=== PATIENT | male | born 1960 | race Caucasian/White ===

== ENCOUNTER 2025-05-09 08:40 | Outpatient (AMB) | payer MEDICARE, SELFPAY ==
--- NOTE | 2025-05-09 08:42 | A.OFFPC_ITS ---
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 Establish care Intake Note: patient here for new patient visit Gym Supervisor Required: No Allergies No Known Allergies Allergy (Verified 05/09/25 08:58) Medication List - Last Reconciled 05/09/25 by Jamar Albarran CNP levothyroxine 125 mcg PO DAILY lovastatin 40 mg PO QPM Tobacco use date assessed: 05/09/25 Fall risk assessment: No Falls in past year Last assessed Fall Risk: 05/09/25 Dental Screening Dental Screen Date: 05/09/25 Did you have a dental visit in the last 12 months?: Yes Did you have a dental problem in the last 6 months where you did not have access to dental care?: No Was dental information given to patient?: Patient has dentist HPI HPI Comments History of Present Illness Details 64-year-old male presents to establish c are. He admits to taking Levothyroxine 125mcg daily and Lovastatin 40mg daily without adverse reactions. Prior PCP? - [facility] Last office Visit - 05/2024 Last CPE/labs -03/2024 Acute issue(s) - None Past Medical History - Hyperlipidemia, hypothyroidism, myopia (wears glasses), bilateral hearing impairment(wears hearing aids) Surgical History - Umbilical hernia repair Family History - Dad: Alcohol abuse - Mom: Breast cancer Social History - Nonsmoker. Does not vape. Drinks 1 bee r once weekly. Denies recreational drug use - Has been making healthy dietary choice s. Exercises routinely. Generally sleep well Health maintenance - Last eye exam was a year ago with Dylan Piper in [facility]. Referred to Ophthalmology for routine eye exam - Last dental visit was in 01/2025 - Last tetanus vaccine was in 2022. - Has not been vaccinated for the flu ; received vaccination today - He has never had a colonoscopy or [place] guard test; declines both testing despite instructions and encouragement for screening Specialists - None [facility] Medical History (Updated 05/09/25 @ 09:19 by Jamar Albarran CNP) H/O thyroid disease High cholesterol Surgical History (Updated 05/09/25 @ 08:56 by DASIA Miller) History of umbilical hernia repair Family History (Updated 05/09/25 @ 08:50 by DASIA Miller) Father Alcohol abuse Social History (Updated 05/09/25 @ 08:50 by DASIA Miller) Housing: House Patient Tobacco Use Status: Never used Tobacco e-Cigarette/Vaping Use: Never Used Second Hand Smoke Exposure: No service: No Current occupational status: retired Current occupational exposures/hazards: No Cognitive needs: No Hearing needs: No Vision needs: Yes Questionnaire PHQ-9 Over the last 2 weeks, how often have you been bothered by any of the following problems? 1. Little interest or pleasure in doing things: not at all 2. Feeling down, depressed, or hopeless: not at all 3. Trouble falling or staying asleep, or sleeping too much: not at all 4. Feeling tired or having little energy: not at all 5. Poor appetite or overeating: not at all 6. Feeling bad about yourself - or that you are a failure or have let yourself or your family down: not at all 7. Trouble concentrating on things, such as reading the newspaper or watching television: not at all 8. Moving or speaking so slowly that other people could have noticed. Or the opposite - being so fidgety or restless that you have been moving around a lot more than usual: not at all 9. Thoughts that you would be better off or of hurting yourself in some way: not at all Total score: 0 Depression Screening Interpretation: Negative Depression Screening Done: Yes 38329 - PHQ-9 Billing: Yes Source: Developed by Drs. Leoncio Shelby, Leeann Sloan, Angel Lai and colleagues, with an educational luis from [employer]. Thrive Questionnaire Date Thrive assessed: 05/09/25 I am a: Patient What is your living situation today?: I have a steady place to live Within the past 12 months, did the food you bought not last and you didn't have the money to get more?: Never true Within the past 12 months, did you worry whether your food would run out before you got money to buy more?: Never true Do you have trouble paying for medicines?: No Do you have trouble getting transportation to medical appointments?: No Do you have trouble paying your heating and electricity bill?: No Do you have trouble taking care of your child, family member or friend?: No Do you have trouble with day-to-day activities such as bathing, preparing meals, shopping, managing finances, etc.?: No Are you currently unemployed and looking for a job?: No Are you interested in more education?: No Please select the resources that you would like help with: None Currently or been in a relationship where the following occur: No concerns reported THRIVE Score: 0 AUDIT C Alcohol Use Questionnaire (AUDIT-C) 1. How often do you have a drink containing alcohol?: 2-4 times a month 2. How many drinks containing alcohol do you have on a typical day when you are drinking?: 1 or 2 3. How often do you have six or more drinks on one occasion?: Never Total Score: 2 Score Reviewed/Action Taken: Yes BATSHEVA-7 AMB Questionnaire BATSHEVA-7 Date BATSHEVA - 7 assessed: 05/09/25 Feeling nervous, anxious, or on edge: 0 = Not at all Not being able to stop or control worryin = Not at all Worrying too much about different things: 0 = Not at all Trouble relaxin = Not at all Being so restless that it is hard to sit still: 0 = Not at all Becoming easily annoyed or irritable: 0 = Not at all Feeling afraid as if something awful might happen: 0 = Not at all Total BATSHEVA-7 score (0-4 normal; 5-9 mild; 10-14 moderate; 15-21 severe): 0 Source: Developed by Drs. Leoncio Shelby, Leeann Sloan, Angel Lai and colleagues, with an educational luis from [employer]. BATSHEVA-7 Assessment Billing BATSHEVA-7 Assessment Tool: BATSHEVA-7 Assessment 67710 Review of Systems Const Details: Denies chills, Denies fatigue, Denies fever(s), Denies headache(s) and Denies weakness HEENT Denies change in vision, Denies dizziness, Denies headache(s), Denies hearing loss, Denies nasal congestion, Denies sinus pain, Denies sinus pressure and Denies sore throat Card Denies chest pain, Denies lightheadedness, Denies dyspnea and Denies other (palpitations) Resp Denies cough, Denies dyspnea and Denies wheezing GI Denies abdominal pain, Denies melena, Denies hematochezia, Denies change in bowel habits, Denies dyspepsia and Denies nausea Denies hematuria and Denies dysuria Musc Denies abnormal gait, Denies myalgias, Denies arthralgias, Denies numbness and Denies tingling Skin/Breast Denies rash, Denies unusual bruising and Denies wounds Neuro Denies abnormal gait, Denies dizziness, Denies headache(s), Denies memory loss, Denies numbness, Denies Sensory deficit (Neuro), Denies tingling and Denies weakness Psych Denies anxiety, Denies depression and Denies memory loss Endo Denies cold intolerance, Denies fatigue, Denies heat intolerance, Denies polydipsia and Denies polyuria Reji/Lymph Denies easy bleeding and Denies easy bruising Aller/Immun Denies wheezing Physical exam (Primary Care) Vital Signs: Last Vital Signs Temp 98.0 F 05/09/25 08:51 Pulse 65 05/09/25 08:51 Resp 16 05/09/25 08:51 BP 130/86 05/09/25 09:21 Pulse Ox 96 05/09/25 08:51 Oxygen Delivery Method Room Air 05/09/25 08:51 BMI result Body Mass Index 35.8 Tobacco/Smoking Status: Tobacco use Status Tobacco use date assessed 05/09/25 05/09/25 08:50 Patient Tobacco Use Status Never used Tobacco 05/09/25 08:50 e-Cigarette/Vaping Use Never Used 05/09/25 08:50 PHQ-9: PHQ-9 Score PHQ-9: Total score 0 05/09/25 10:00 Depression Screening Interpretation: Negative Thrive Assessment: Date of Thrive Assessment Date Thrive assessed 05/09/25 05/09/25 08:46 Currently or been in a relationship where the following occur: No concerns reported Const Other: General: no acute distress, well developed, alert and awake Nutritional Appearance: well nourished Orientation/consciousness: patient oriented x3 HENMT Head: Yes normocephalic and Yes atraumatic Ears: hearing grossly normal bilaterally and TM's normal bilaterally General nose exam: Normal external nose present and Normal nares present Mouth: Normal oral and palatal mucosa present and moist mucous membranes Teeth and gingiva: dentition normal Throat: Yes oropharynx normal Eyes Pupils: Equal, round and reactive pupils present and Pupil accommodation reflex normal EOM: EOMs intact bilaterally Neck Neck: Yes normal visual inspection, Yes no lymphadenopathy and Yes trachea midline Thyroid: Thyroid normal Carotids: no bruits Lymphatic: no lymphadenopathy noted Chest Chest palpation & inspection: normal inspection of the chest Resp Effort & Inspection: normal respiratory effort Auscultation: clear to auscultation bilaterally Cardio Rate: regular rate Rhythm: regular rhythm Heart sounds: S1 normal heart sound present, S2 normal heart sound present, no gallops, no murmurs and no rubs Bruits: no abdominal aortic bruits and no carotid bruits GI Palpation (GI): No Abdominal aortic bruit present, Soft to palpation, nontender, No hepatosplenomegaly present and No Rebound tenderness present Auscultation: normal bowel sounds General: Yes no CVA tenderness Back/Spine/Pelvis Back: no CVA tenderness Cervical Spine: cervical ROM normal and No Cervical spine tenderness Thoracic/Lumbar Spine: thoraco-lumbar ROM normal, No pain with thoraco-lumbar ROM, No thoracic spinal tenderness and No lumbar spinal tenderness Skin General: warm and dry. Normal skin color. Normal skin turgor Lesions: no lesions Rashes: no rashes Trauma: no lacerations or abrasions Wounds: no wounds Nails: normal Neuro General: patient oriented x3, gait normal and CN's II-XI intact bilaterally Cranial nerves: Yes Equal, round and reactive pupils present Cognition (Neuro): normal cognition Gait exam (Neuro): Normal gait present Motor exam (neuro): 5/5 motor strength present throughout Sensory Exam: No Sensory deficit (Neuro) Deep tendon reflexes (DTR's): Right patellar reflex intensity grade: 2+ and Left patellar reflex intensity grade: 2+ Extrem General: Yes normal to inspection, No edema and No calf tenderness Psych Appearance: grossly normal Affect: normal affect Attitude: cooperative Thought process: Normal thought process present Office Procedures Flu Questionnaire Does the patient have a severe egg allergy?: No Does the patient have severe life threatening allergies?: No Does the patient have a fever or illness today?: No Has the patient ever had Guillain-[place] Syndrome?: No Has the patient ever had any past reaction to a flu shot?: No Immunizations Fluarix [id number] (PF) 45 mcg (15 mcg x 3)/0.5 mL IM syringe Performing Provider: Jamar Albarran CNP Performing Location: [facility] Administered by: Bandar Urrutia RN on 05/09/25 09:57 Dose Route Admin Location Dispensed Lot Number Expiration Date 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 [employer] Production 0.5 mL IM Left Deltoid 0.5 mL [id number] 01/09/26 [id number] [employer] VIS Given Date VIS Provided VIS Publication Date 05/09/25 Single Vaccine 24 Eligibility Eligibility Date Funding Source Not [facility] Eligible 05/09/25 Private Coding Level of Care Code New Pt Prev Care >65yr (56625) Diagnoses Normal physical examination, routine Z00.00 Eye exam, routine Z01.00 Laboratory tests ordered as part of a complete physical exam (CPE) Z00.00 Additional Codes BATSHEVA-7 Assessment Billing - BATSHEVA-7 Assessment Tool: BATSHEVA-7 Assessment 86353 ([id number]) PHQ-9 - 96497 - PHQ-9 Billing: Yes ([id number]) Assessment & Plan Assessment & Plan (1) Normal physical examination, routine: Code(s): Z00.00 - Encounter for general adult medical examination without abnormal findings Category: Medical Plan: No significant functional limitation noted. Continue current treatment regimen. Healthy diet and routine exercise encouraged. Perform lab work and follow-up in 2 weeks for labs review. Return sooner with symptoms or concerns. Verbalized understanding and agreed with the plan. (2) Eye exam, routine: Code(s): Z01.00 - Encounter for examination of eyes and vision without abnormal findings Category: Medical Plan: Last eye exam was a year ago with Steve in [facility]. Referred to Ophthalmology for routine eye exam. (3) Laboratory tests ordered as part of a complete physical exam (CPE): Code(s): Z00.00 - Encounter for general adult medical examination without abnormal findings Category: Medical Plan: Fasting labs ordered as part of a complete physical exam. Advised to fast for at least 10 hours before getting labs drawn. May drink water Verbalized understanding and agreed with treatment plan. Orders: Orders Comprehensive [place]. Panel Fast Today Z00.00 - Encounter for general adult medical examination without abnormal findings Lipid Panel Today Z00.00 - Encounter for general adult medical examination without abnormal findings Microalbumin, Random (w Creat) Today Z00.00 - Encounter for general adult medical examination without abnormal findings TSH reflex Free T4 Today Z00.00 - Encounter for general adult medical examination without abnormal findings Complete Blood Count Auto Diff Today Z00.00 - Encounter for general adult medical examination without abnormal findings PSA, Ultra Sensitive Today Z00.00 - Encounter for general adult medical examination without abnormal findings UA CC w/rflx Micro + Cult Today Z00.00 - Encounter for general adult medical examination without abnormal findings Vitamin D 25-OH Total Today Z00.00 - Encounter for general adult medical examination without abnormal findings Influenza [id number] Immunization Today Z23 - Encounter for immunization Referrals Ophthalmology Referral Z01.00 - Encounter for examination of eyes and vision without abnormal findings Medications: New levothyroxine 125 mcg PO DAILY 90 caps 1RF 90 days lovastatin 40 mg PO QPM 90 tabs 1RF 90 days
[2025-05-09 08:51] VITALS: BP 157/77; PULSE 65; RESP 16; TEMP 36.7; O2SAT 96; BMI 35.8
[2025-05-09 09:21] VITALS: BP 130/86
--- OUTSIDE RECORDS SUMMARY | 2025-05-09 09:24 | XMS_ITS | Clinical Summary ---
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 0 10/23/2009 Active Active Problems Problem Noted Date Diagnosed Date Erectile dysfunction 10/23/2009 Hypothyroidism 10/04/2009 Arthritis 10/04/2009 Overview (08/16/2023): Description: Left Knee Immunizations Immunization Administration Dates Next Due Influenza (SEASONAL) - 07/13/2003 Td (adult), adsorbed 01/16/2000 Tdap 10/17/2008 Family History Medical History Relation Name Comments Inflammatory Bowel Disease Brother Brooks muhammad's (Granulomatous) Colitis : Brother Cancer - Breast Mother Breast Cance r : Mother Relation Name Status Comments Brother Mother Social History Tobacco Use Types Packs/Day Years Used Date Smoking Tobacco: Never Assessed Sex and Gender Information Value Date Recorded Sex Assigned at Not on file Legal Sex Male 12:20 PM EDT Gender Identity Not on file Sexual Orientation Not on file Last Filed Vital Signs Vital Sign Reading Time Taken Comments Blood Pressure 120/70 10/23/2009 1:46 PM EDT Pulse 72 10/23/2009 1:29 PM EDT Temperature - - Respiratory Rate - - Oxygen Saturation - - Inhaled Oxygen Concentration - - Weight 127 kg (278 lb 15.9 oz) 10/23/2009 1:29 P M EDT Height - - Body Mass Index - - Plan of Treatment Health Maintenance Due Date Last Done Comments Hepatitis C Screening 1960 Colon Cancer Screening 11/02/2004 Pneumococcal 50+ years (1 of 1 - PCV) 11/02/2009 Zoster (Shingrix) (1 of 2) 11/02/2009 DTaP/Tdap/Td (2 - Td or Tdap) 10/17/2018 10/17/2008, 01/16/2000 COVID-19 Vaccine (1 - 2024- season) 2025 Influenza (#1) 2025 07/13/2003 RSV (1 - 1-dose 75+ series) 11/02/2034 EKG Discontinued 10/23/2009, 10/11, 10/23/2009, Additional history exists Abdominal Aorta Imaging Discontinued HPV Vaccine (No Doses Required) Completed Hep A Aged Out No longer eligi ble based on patient's age to complete this topic Hep B Aged Out No longer eligi ble based on patient's age to complete this topic Hib Aged Out No longer eligi ble based on patient's age to complete this topic Meningococcal ACWY Aged Out No longer eligible based on patient's age to complete this topic Zoster (Zostavax) Discontinued Procedures Procedure Name Priority Date/Time Associated Diagnosis Comments EKG Routine 10/23/2009 1:15 PM EDT from Last 3 Months or Most Recently Relevant to Health Maintenance Results * EKG (10/23/2009 1:15 PM EDT) EKG/ECG NSR, no change in Q in III, nil acute PHCT CONVERSIONS 10/23/2009 1:15 PM EDT us Orestes Abdullahi MD CARDIOVASCULAR-NO INBASKET RT G Final Result PHCT CONVERSIONS from Last 3 Months or Most Recently Relevant to Health Maintenance Care Teams Knit Goods Cutter Hand Relationship Specialty Start Date End Date Orestes Atkinson MD [facility] [address] [place] [id number] PCP - General 02/16/23
--- OUTSIDE RECORDS SUMMARY | 2025-05-09 09:24 | XMS_ITS | Clinical Summary ---
Author Organization [facility] Address [address] [place] [address] Care Team Providers Care Account Resolution Specialist Name Role Phone Meño Jackson DO Primary Care Provider [phone] Allergies No known active allergies Medications Medication Sig Dispensed Refills Start Date End Date Status levothyroxine (SYNTHROID) tablet 125 mcg Take 1 tablet (125 mcg total) by mouth every morning on an empty stomach. 0 Active lovastatin (MEVACOR) 40 MG tablet Take 1 tablet (40 mg total) by mouth every night at bedtime. 0 Active Cholecalciferol (VITAMIN D3 PO) Take 1,000 Units by mouth daily. 0 Active UNABLE TO FIND Take 4 capsules by mouth daily. Med Name: Total Response 0 Active oxyCODONE (ROXICODONE) 5 MG immediate release tablet Take 1 tablet (5 mg total) by mouth every 4 (four) hours as needed for pain. 20 tablet 0 09/19/2022 Active Active Problems Problem Noted Date Diagnosed Date Ventral hernia without obstruction or gangrene 0 08/05/2022 Overview: Added automatically from request for surgery [id number] Social History Tobacco Use Types Packs/Day Years Used Date Smoking Tobacco: Never Smokeless Tobacco: Never Tobacco Cessation:Counseling Given: Not Answered Alcohol Use Standard Drinks/Week Comments Yes 0 (1 standard drink = 0.6 oz pur e alcohol) Occasionally Sex and Gender Information Value Date Recorded Sex Assigned at Male 04/22/2022 3:39 PM EDT Gender Identity Not on file Sexual Orientation Not on file Job Start Date Occupation Industry Not on file Not on file Not on file Last Filed Vital Signs Vital Sign Reading Time Taken Comments Blood Pressure 130/83 09/19/2022 9:52 AM EST Pulse 58 09/19/2022 9:52 AM EST Temperature 36.1 C (97 F) 09/19/2022 9:00 AM EST Respiratory Rate 15 09/19/2022 9:52 AM EST Oxygen Saturation 97% 09/19/2022 9:52 AM EST Inhaled Oxygen Concentration - - Weight 121.6 kg (268 lb) 09/16/2022 11:24 AM EST Height 190.5 cm (6' 3 ) 09/16/2022 11:24 AM EST Body Mass Index 33.5 09/16/2022 11:24 AM EST Plan of Treatment Health Maintenance Due Date Last Done Comments Hepatitis C Screening 1960 COVID-19 Vaccine (#1) 05/04/1960 Depression Screening 1971 Preventative Health Evaluation 11/02/1977 Colon Cancer Screening (Colonoscopy) 11/02/2004 Shingrix-Zoster Vaccine (1 o f 2) 11/02/2009 DTap / Tdap / Td (3 - Td or Tdap) 01/14/2021 01/14/2011, 10/17/2008, 01/16/2000 BMI Counseling 05/23/2023 05/23/2022 Fall Risk Assessment 11/02/2024 Pneumococcal Vaccine (1 of 1 - PCV) 11/02/2024 Influenza Vaccine (#1) 2025 05/12/2018 RSV Adult > 60+ Yrs or (1 - 1-dose 75+ series) 11/02/2034 Hepatitis B Vaccines Aged Out No long er eligible based on patient's age to complete this topic Pneumococcal Vaccine Aged Out No long er eligible based on patient's age to complete this topic RSV Ped < 20 months Aged Out No longe r eligible based on patient's age to complete this topic Medical Devices Implanted Type Area Phys Ther Device Identifier Shelf Expiration Date Model / Serial / Lot Mesh Ventralight Circ 4.5in Crba-Davl [id number] - [id number] Implanted:Qty: 1 on 09/19/2022 by Rony Foster MD at [facility] and [facility] Anterior: Umbilical CR BARD - DAVOL DIV 02/07/2024 [id number] / / [id number] Advance Directives For more information, please contact: [phone] Documents on File Type Date Recorded Patient Tourist Information Assistant Expl anation Advance Directive and Living Will 09/19/2022 [facility] PRO Care Teams Account Resolution Specialist Relationship Specialty Start Date End Date Meño Jackson DO [address] [facility] [place] [address] PCP - General Family Medicine 05/23/22
--- OUTSIDE RECORDS SUMMARY | 2025-05-09 09:24 | XMS_ITS | Clinical Summary ---
Author Organization [employer] [facility] Address [address] [place] [address] Care Team Providers Care Foiling Machine Adjuster Name Role Phone Meño Jackson DO Primary Care Provider [phone] Surgical History Surgery Date Site/Laterality Comments WISDOM TOOTH EXTRACTION PROCEDURE:WISDOM TOOTH EXTRACTION HERNIA REPAIR 09/19/2022 N/A PROCEDURE:HERNIA REPAIR;COMMENT:Procedure: LAPAROSCOPY REPAIR HERNIA ABDOMINAL WALL / INCISIONAL / VENTRAL, INITIAL (REDUCIBLE ANY SIZE, INCARCERATED OR STRANGULATED 10 CM OR LESS); Surgeon: Rony Foster MD; Location: [facility] MAIN OPERATING ROOM; Service: General; Laterality: N Medical History Medical History Date Comments Hyperlipidemia DX:Hyperlipidemi a Kidney stone DX:Kidney stone HL (hearing loss) DX:HL (hearing loss);COMMENT:Hearing aids gilma Hypothyroidism DX:Hypothyroidis m Social History Tobacco Use Types Packs/Day Years Used Date Smoking Tobacco: Never Smokeless Tobacco: Never Alcohol Use Standard Drinks/Week Comments Yes 0 (1 standard drink = 0.6 oz pur e alcohol) Sex and Gender Information Value Date Recorded Sex Assigned at Not on file Legal Sex Male 3:17 AM EST Gender Identity Not on file Sexual Orientation Not on file Obstetrics History Last Filed Vital Signs Vital Sign Reading Time Taken Comments Blood Pressure 138/74 05/23/2022 1:34 PM EST Pulse 76 05/23/2022 1:34 PM EST Temperature - - Respiratory Rate - - Oxygen Saturation - - Inhaled Oxygen Concentration - - Weight 120 kg (265 lb) 05/23/2022 1:34 PM EST Height 190.5 cm (6' 3 ) 05/23/2022 1:34 PM EST Body Mass Index 33.12 05/23/2022 1:34 PM EST Plan of Treatment Health Maintenance Due Date Last Done Comments Pneumococcal Vaccine: 50+ Years (1 of 1 - PCV) 11/02/2009 Zoster Vaccines (1 of 2) 11/02/2009 DTaP,Tdap,and Td Vaccines (4 - Td or Tdap) 01/14/2021 01/14/2011, 10/17/2008, 01/16/2000 Abdominal Aortic Aneurysm (AAA) Screen 06/15/2022 Cholesterol Screening (Lipid Panel) 06/15/2022 Colorectal Cancer Screening: Stool Based Tests (FOBT/FIT) 06/15/2022 Hepatitis C Screening 06/15/2022 Social Influencers of Health Screening 06/15/2022 Depression Screening 07/13/2024 Falls Risk Assessment 11/02/2024 COVID-19 Vaccine (1 - 2023-2 5 season) 2025 Influenza Vaccine (#1) 2025 05/12/2018 RSV Immunization Adult Patients (1 - 1-dose 75+ series) 11/02/2034 HIB Vaccines Aged Out No longer eligi ble based on patient's age to complete this topic HPV Vaccines Aged Out No longer eligi ble based on patient's age to complete this topic Hepatitis A Vaccines Aged Out No long er eligible based on patient's age to complete this topic Hepatitis B Vaccines Aged Out No long er eligible based on patient's age to complete this topic IPV Vaccines Aged Out No longer eligi ble based on patient's age to complete this topic MMR Vaccines Aged Out No longer eligi ble based on patient's age to complete this topic Meningococcal ACWY Vaccine Aged Out N o longer eligible based on patient's age to complete this topic Meningococcal B Vaccine Aged Out No l onger eligible based on patient's age to complete this topic RSV Immunization Patients Under 20 months Aged Out No longer eligible b ased on patient's age to complete this topic Varicella Vaccines Aged Out No longer eligible based on patient's age to complete this topic Medical Devices Implanted Type Area Account Manager Sales Representative Device Identifier Shelf Expiration Date Model / Serial / Lot Mesh Ventralight Circ 4.5in Crba-Davl [id number] Implanted:Qty: 1 on 09/19/2022 by Rony Foster MD N/A: Funmi DARNELL - DAVOL DIV 02/07/2024 [id number] / / [id number] Advance Directives Documents on File Type Date Recorded 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
== END 2025-05-09 09:37 | disposition home or self-care (01) ==
LOC: HO.HMCFM 08:40
PROVIDERS: PCP Nurse Practitioner Family; Visit Provider Nurse Practitioner Family
DX: Z00.00 Encounter for general adult medical examination without abnormal findings (principal); Z01.00 Encounter for examination of eyes and vision without abnormal findings; Z23 Encounter for immunization

== ENCOUNTER → 2025-05-09 08:40 | Outpatient (BNVA) | payer MEDICARE, SELFPAY | PROVIDERS: Visit Provider Nurse Practitioner Family | DX: Z00.00 Encounter for general adult medical examination without abnormal findings (principal); Z23 Encounter for immunization | CPT/HCPCS: 90471; 90656; 96127; 99387 ==

== ENCOUNTER 2025-05-10 08:26 | Outpatient (REF) | payer MEDICARE, SELFPAY ==
--- OUTSIDE RECORDS SUMMARY | 2025-05-10 08:58 | XMS_ITS | Clinical Summary ---
Author Organization [facility] Address [address] [place] [address] Care Team Providers Care Security Operations Center Analyst Name Role Phone Orestes Atkinson MD Primary Care Provider [phone] Allergies Active Allergy Reactions Criticality Noted Date [...] Recently Relevant to Health Maintenance Care Teams Security Operations Center Analyst Relationship Specialty Start Date End Date Orestes Atkinson MD [facility] [address] [place] [id number] PCP - General 02/16/23
--- OUTSIDE RECORDS SUMMARY | 2025-05-10 08:58 | XMS_ITS ---
Author Name [facility] Organization Unknown Results Test Name/Text Value Interpretation Date Range Source Est. average glucose Bld gHb Est-mCnc 143.0 mg/dL (calc) Normal 04/20/2024 [facility] HbA1c MFr Bld 6.2 % of total Hgb Above high normal 04/20/2024 - 5.7 [facility] Albumin/Creat Ur 121.0 mg/g creat Above high normal 04/20/2024 - 30 [facility] Creat Ur-mCnc 101.0 mg/dL Normal 04/20/2024 20 - [address] Microalbumin Ur-mCnc 12.2 mg/dL Normal 04/20/2024 - [facility] HDLc SerPl-mCnc 42.0 mg/dL Normal 04/20/2024 - [facility] EST Cholest/HDLc SerPl 4.5 (calc) Normal 04/20/2024 - 5 [facility] LDLc SerPl Calc-mCnc 122.0 mg/dL (calc) Above high normal 04/20/2024 [facility] Cholest SerPl-mCnc 190.0 mg/dL Normal 04/20/2024 - 200 [facility] NonHDLc SerPl-mCnc 148.0 mg/dL (calc) Above high normal 04/20/2024 - 130 [facility] Trigl SerPl-mCnc 144.0 mg/dL Normal 04/20/2024 - 150 [facility] Bilirub SerPl-mCnc 0.7 mg/dL Normal 04/20/2024 0.2 - 1.2 [facility] BUN/Creat SerPl SEE NOTE: Normal 04/20/2024 6 - [address] Creat SerPl-mCnc 1.08 mg/dL Normal 04/20/2024 0.7 - 1.35 [facility] ALP SerPl-cCnc 64.0 U/L Normal 04/20/2024 35 - 144 [facility] T AST SerPl-cCnc 17.0 U/L Normal 04/20/2024 10 - 35 [facility] T Potassium SerPl-sCnc 4.1 mmol/L Normal 04/20/2024 3.5 - 5 .3 [facility] ALT SerPl-cCnc 19.0 U/L Normal 04/20/2024 9 - 46 [facility] T Prot SerPl-mCnc 6.7 g/dL Normal 04/20/2024 6.1 - 8.[address] eGFRcr SerPlBld CKD-EPI 2020 77.0 mL/min/1.73m2 Normal 04/20/2024 - [facility] Chloride SerPl-sCnc 106.0 mmol/L Normal 04/20/2024 98 - 1 10 [facility] Globulin Ser Calc-mCnc 2.5 g/dL (calc) Normal 04/20/2024 1.9 - 3.7 [facility] Albumin SerPl-mCnc 4.2 g/dL Normal 04/20/2024 3.6 - 5.1 [facility] CO2 SerPl-sCnc 26.0 mmol/L Normal 04/20/2024 20 - 32 [facility] EST Calcium SerPl-mCnc 9.3 mg/dL Normal 04/20/2024 8.6 - 10.3 [facility] Glucose SerPl-mCnc 111.0 mg/dL Above high normal 04/20/2024 65 - 99 [facility] BUN SerPl-mCnc 18.0 mg/dL Normal 04/20/2024 7 - [address] Sodium SerPl-sCnc 140.0 mmol/L Normal 04/20/2024 135 - 14 6 [facility] Albumin/Glob SerPl 1.7 (calc) Normal 04/20/2024 1 - 2.5 [facility] Neutrophils # Bld Auto 3282.0 cells/uL Normal 04/20/2024 1500 - 7800 [facility] WBC # Bld Auto 6.0 Thousand/uL Normal 04/20/2024 3.8 - 10 .8 [facility] Basophils # Bld Auto 60.0 cells/uL Normal 04/20/2024 0 - 200 [facility] Platelet # Bld Auto 312.0 Thousand/uL Normal 04/20/2024 140 - 400 [facility] Lymphocytes/leuk NFr Bld Auto 28.2 % Normal 04/20/2024 [facility] RDW RBC Auto-Rto 12.2 % Normal 04/20/2024 11 - 15 [facility] EST Hgb Bld-mCnc 15.0 g/dL Normal 04/20/2024 13.2 - 17.1 [facility] T Hct VFr Bld Auto 43.8 % Normal 04/20/2024 38.5 - 50 [facility] EST RBC # Bld Auto 4.72 Million/uL Normal 04/20/2024 4.2 - 5. 8 [facility] Eosinophil # Bld Auto 258.0 cells/uL Normal 04/20/2024 15 - 500 [facility] Monocytes/leuk NFr Bld Auto 11.8 % Normal 04/20/2024 [facility] MCHC RBC Auto-mCnc 34.2 g/dL Normal 04/20/2024 32 - 36 [facility] Eosinophil/leuk NFr Bld Auto 4.3 % Normal 04/20/2024 [facility] PMV Bld Seth-Robbin 10.3 fL Normal 04/20/2024 7.5 - 12.5 [facility] MCH RBC Qn Auto 31.8 pg Normal 04/20/2024 27 - [address] [facility] [address] Basophils/leuk NFr Bld Auto 1.0 % Normal 04/20/2024 [facility] Neutrophils/leuk NFr Bld Auto 54.7 % Normal 04/20/2024 [facility] MCV RBC Auto 92.8 fL Normal 04/20/2024 80 - 100 [facility] Monocytes # Bld Auto 708.0 cells/uL Normal 04/20/2024 200 - 950 [facility] Lymphocytes # Bld Auto 1692.0 cells/uL Normal 04/20/2024 850 - 3900 [facility] PSA SerPl-mCnc 1.0 ng/mL Normal 04/20/2024 - [facility] T TSH SerPl-aCnc 1.62 mIU/L Normal 04/20/2024 0.4 - 4.[address] [facility] Immunizations Vaccine Date Source Lot Number Status Fluarix Quad (PF) 60 mcg (15 mcg x 4)/0.5 mL IM syringe 04/15/2023 ENS_GiphyRICKIECT [id number] compl eted tetanus toxoid, reduced diph theria toxoid, and acellular pertussis vaccine, adsorbed 04/08/2021 ENS_GRANRICKIECT [id number] completed Encounters Encounter Type Encounter Reason Primary Diagnosis Location Date [facility] 12/21/2024 [facility] 12/21/2024 [facility] 04/21/2024 [facility] 04/19/[address] [facility] 04/19/[address] [facility] 04/19/[address] [facility] 04/21/2023 Care Team Organization Name Specialty Phone Email Start Date End Da te [facility], [facility] 05/27/2023 [facility] 11/17/2022 02/29/2024
--- OUTSIDE RECORDS SUMMARY | 2025-05-10 08:58 | XMS_ITS | Clinical Summary ---
Author Organization [facility] Address [address] [place] [address] Care Team Providers Care Single Wire Saw Operator Name Role Phone Meño Jackson DO Primary Care Provider [phone] Allergies No known active allergies Medications Medication [...] Overview: Added automatically from request for surgery [id number] Social History Tobacco Use Types Packs/Day Years [...] this topic Medical Devices Implanted Type Area Ldr Rn Device Identifier Shelf Expiration Date Model / Serial / Lot Mesh Ventralight Circ 4.5in Crba-Davl [id number] - [id number] Implanted:Qty: 1 on 09/19/2022 by Rony Foster MD at [facility] and [facility] Anterior: Umbilical CR BARD - DAVOL DIV 02/07/2024 [id number] / / [id number] Advance Directives For more information, please contact: [phone] Documents on File Type Date Recorded 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
--- OUTSIDE RECORDS SUMMARY | 2025-05-10 08:58 | XMS_ITS | Clinical Summary ---
Author Organization [employer] [facility] Address [address] [place] [address] Care Team Providers Care Insulating Machine Operator Name Role Phone Meño Jackson DO Primary Care Provider [phone] Surgical History Surgery Date Site/Laterality Comments WISDOM TOOTH EXTRACTION PROCEDURE:WISDOM TOOTH EXTRACTION HERNIA REPAIR 09/19/2022 N/A PROCEDURE:HERNIA REPAIR;COMMENT:Procedure: LAPAROSCOPY REPAIR HERNIA ABDOMINAL WALL / INCISIONAL / VENTRAL, INITIAL (REDUCIBLE ANY SIZE, INCARCERATED OR STRANGULATED 10 CM OR LESS); Surgeon: Rony Foster MD; Location: [facility] MAIN OPERATING ROOM; Service: General; [...] this topic Medical Devices Implanted Type Area Mapping Engineer Device Identifier Shelf Expiration Date Model / Serial / Lot Mesh Ventralight Circ 4.5in Crba-Davl [id number] Implanted:Qty: 1 on 09/19/2022 by Rony Foster MD N/A: Funmi DARNELL - DAVOL DIV 02/07/2024 [id number] / / [id number] Advance Directives Documents on File Type Date Recorded Patient Meringuer Expl anation Health Care Decision (hx) 09/19/2022 ADVANCE DIRECTIVE AN D LIVING WILL Care Teams Insulating Machine Operator Relationship Specialty Start Date End Date Meño Jackson DO [address] [place] [phone] PCP - General 05/23/22
[2025-05-10 11:31] LABS: MANUAL DIFF FLAG NO
[2025-05-10 11:42] LABS: Appearance Urine Clear; Glucose Urine UA Negative (Negative); PH 7.0 (5.0-9.0); Specific Gravity - Urine 1.015 (1.005-1.025); UMIC TRIGGER UACC YES
[2025-05-10 11:52] LABS: Hematocrit 45.0 % (42.0-52.0); Hemoglobin 15.1 g/dl (14.0-18.0); Imm Gran Abs Auto 0.03 X10*3/uL (0.00-0.03); Imm Gran Pct Auto 0.5 % (0.0-0.4); Lymphocytes Absolute Auto 1.6 X10*3/uL (1.2-4.9); Mean Corpuscular HGB Conc 33.6 g/dl (31.0-36.0); Mean Corpuscular Hemoglobin 31.0 pg (27.0-33.0); Mean Corpuscular Volume 92.4 fL (80.0-98.0); NRBC Abs Auto 0.000 X10*3/uL (0.0-0.012); NRBC Pct Auto 0.0 /100WBC (0.0-0.2); Platelet Count 269 X10*3/uL (160-400); Red Blood Count 4.87 X10*6/uL (4.60-5.80); White Blood Count 6.3 X10*3/uL (4.8-10.8)
[2025-05-10 12:31] LABS: Alanine Aminotransferase 30 U/L (0-40); Albumin Level 4.3 g/dL (3.5-5.0); Alkaline Phosphatase 70 U/L (39-117); Anion Gap 10 (12-20); Aspartate Amino Transferase 30 U/L (5-37); Blood Urea Nitrogen 17 mg/dL (9-16); Calcium 9.2 mg/dL (8.4-10.2); Carbon Dioxide 24 mmol/L (22-29); Chloride 111 mmol/L (96-108); Cholesterol 178 mg/dL (<200); Estimated Glomerular Filt Rate > 60; HDL Cholesterol 37 mg/dL (>40); Potassium 4.0 mmol/L (3.3-5.1); Sodium 141 mmol/L (135-145); Total Protein 7.0 g/dL (6.5-8.0); Triglycerides 190 mg/dL (<150)
[2025-05-10 12:38] LABS: Microalbum/Creatinine Ratio Ur 296.3 ug/mg cr (<30)
[2025-05-10 13:14] LABS: Free T4 (Free Thyroxine) 1.00 ng/dL (0.71-1.85)
[2025-05-19 21:09] LABS: PSA, Ultra Sensitive 0.52 ng/mL
== END 2025-05-10 08:27 | disposition home or self-care (01) ==
LOC: HO.WFDLDS 08:26
PROVIDERS: Visit Provider Nurse Practitioner Family
DX: Z00.00 Encounter for general adult medical examination without abnormal findings (principal); Z12.5 Encounter for screening for malignant neoplasm of prostate; Z13.21 Encounter for screening for nutritional disorder; Z13.29 Encounter for screening for other suspected endocrine disorder; Z13.6 Encounter for screening for cardiovascular disorders
CPT/HCPCS: 36415; 80053; 80061; 81001; 82043; 82306; 82570; 84153; 84439; 84443; 85025

== ENCOUNTER 2025-05-23 09:12 | Outpatient (AMB) | payer MEDICARE, SELFPAY ==
--- NOTE | 2025-05-23 09:15 | A.OFFPC_ITS ---
Vital Signs 05/23/25 09:18 05/23/25 09:34 Height 6 ft 3 in Weight 289 lb 2 oz BMI 36.1 BP 152/67 H 122/80 Blood Pressure Location Lt brachial Lt brachial Position Sitting Sitting Respiration 16 Pulse 61 Pulse Source Pulse Oximeter Temp 97.7 F Temp Source Oral Pulse Oximetry (%) 95 Oxygen Delivery Method Room Air Intake Visit Reasons: 2-3 wks labs results Intake Note: patient here for 2-3 wks follow up on labs Stitch Bonding Machine Operator Required: No Allergies No Known Allergies Allergy (Verified 05/23/25 09:22) Medication List - Last Reconciled 05/23/25 by Jamar Albarran CNP levothyroxine (Euthyrox) 137 mcg PO DAILY 30 days lovastatin 40 mg PO QPM 90 days Tobacco use date assessed: 05/23/25 Fall risk assessment: No Falls in past year Last assessed Fall Risk: 05/23/25 Dental Screening Dental Screen Date: 05/23/25 Did you have a dental visit in the last 12 months?: Yes Did you have a dental problem in the last 6 months where you did not have access to dental care?: No Was dental information given to patient?: Patient has dentist HPI HPI Comments History of Present Illness Details 64-year-old male presents for review of recent lab results. He admits to taking his medications as prescribed without adverse reactions. He notes that he has been making healthy lifestyle changes. He offers no complaints and denies acute symptoms at this time. [facility] Medical History (Updated 05/23/25 @ 12:30 by Jamar Albarran CNP) H/O thyroid disease High cholesterol Surgical History (Updated 05/09/25 @ 08:56 by DASIA Miller) History of umbilical hernia repair Family History (Updated 05/09/25 @ 08:50 by DASIA Miller) Father Alcohol abuse Social History (Updated 05/09/25 @ 08:50 by DASIA Miller) Housing: House Patient Tobacco Use Status: Never used Tobacco e-Cigarette/Vaping Use: Never Used Second Hand Smoke Exposure: No service: No Current occupational status: retired Current occupational exposures/hazards: No Cognitive needs: No Hearing needs: No Vision needs: Yes Questionnaire Thrive Questionnaire Date Thrive assessed: 05/03/25 I am a: Patient What is your living situation today?: I have a steady place to live Within the past 12 months, did the food you bought not last and you didn't have the money to get more?: Never true Within the past 12 months, did you worry whether your food would run out before you got money to buy more?: Never true Do you have trouble paying for medicines?: No Do you have trouble getting transportation to medical appointments?: No Do you have trouble paying your heating and electricity bill?: No Do you have trouble taking care of your child, family member or friend?: No Do you have trouble with day-to-day activities such as bathing, preparing meals, shopping, managing finances, etc.?: No Are you currently unemployed and looking for a job?: No Are you interested in more education?: No Please select the resources that you would like help with: None Currently or been in a relationship where the following occur: No concerns reported THRIVE Score: 0 BATSHEVA-7 AMB Questionnaire BATSHEVA-7 Date BATSHEVA - 7 assessed: 05/09/25 Source: Developed by Drs. Leoncio Shelby, Leeann Sloan, Angel Lai and colleagues, with an educational luis from [employer]. Review of Systems Const Details: Const Denies chills, Denies fatigue, Denies fever(s), Denies headache(s) and Denies weakness ENT Denies dizziness and Denies headache(s) Card Denies chest pain, Denies lightheadedness, Denies dyspnea and Denies other (Palpitations) Resp Denies cough, Denies dyspnea, Denies wheezing and Denies other ( shortness of breath) GI Denies abdominal pain, Denies melena, Denies hematochezia, Denies change in bowel habits, Denies dyspepsia and Denies nausea Denies hematuria and Denies dysuria Musc Denies abnormal gait, Denies myalgias, Denies arthralgias, Denies numbness and Denies tingling Skin/Breast Denies rash, Denies unusual bruising and Denies wounds Neuro Denies abnormal gait, Denies dizziness, Denies headache(s), Denies memory loss, Denies numbness, Denies Sensory deficit (Neuro), Denies tingling and Denies weakness Psych Denies anxiety, Denies depression, Denies memory loss Endo Denies cold intolerance, Denies fatigue, Denies heat intolerance, Denies polydipsia and Denies polyuria Aller/Immun Denies wheezing Physical exam (Primary Care) Vital Signs: Last Vital Signs Temp 97.7 F 05/23/25 09:18 Pulse 61 05/23/25 09:18 Resp 16 05/23/25 09:18 BP 122/80 05/23/25 09:34 Pulse Ox 95 05/23/25 09:18 Oxygen Delivery Method Room Air 05/23/25 09:18 BMI result Body Mass Index 36.1 Tobacco/Smoking Status: Tobacco use Status Tobacco use date assessed 05/23/25 05/23/25 09:20 Patient Tobacco Use Status Never used Tobacco 05/23/25 09:20 e-Cigarette/Vaping Use Never Used 05/23/25 09:20 Thrive Assessment: Date of Thrive Assessment Date Thrive assessed 05/03/25 05/23/25 09:20 Currently or been in a relationship where the following occur: No concerns reported Const Other: General: no acute distress and well developed Nutritional Appearance: well nourished Orientation/consciousness: patient oriented x3 HENMT Head: Yes normocephalic and Yes atraumatic Eyes General: appearance normal, both eyes and all related structures Pupils: Equal, round and reactive pupils present EOM: EOMs intact bilaterally Resp Effort & Inspection: normal respiratory effort Auscultation: clear to auscultation bilaterally Cardio Rate: regular rate Rhythm: regular rhythm Heart sounds: S1 normal heart sound present, S2 normal heart sound present, no gallops, no murmurs and no rubs Extrem General: Yes normal to inspection, No edema and No calf tenderness Skin General: warm and dry. Normal skin color. Normal skin turgor General: patient oriented x3, gait normal and no focal neuro deficit Cranial nerves: Yes Equal, round and reactive pupils present Cognition (Neuro): normal cognition Gait exam (Neuro): Normal gait present Sensory Exam: No Sensory deficit (Neuro) Psych Appearance: grossly normal Affect: normal affect Attitude: cooperative Thought process: Normal thought process present Results AMB Hemoglobin A1c AMB Hemoglobin A1c 6.3 % Last Edit by DASIA Miller on 05/23/25 09:55 Results Reviewed Results Reviewed: Laboratory Last Values Hgb A1c (Clinic) 6.3 % (4.0-6.0) H 05/23/25 09:31 Coding Level of Care Code Est Pt Level 4 (34505) Diagnoses Hypothyroidism E03.9 High cholesterol E78.00 Prediabetes R73.03 Assessment & Plan Assessment & Plan (1) Hypothyroidism: Code(s): E03.9 - Hypothyroidism, unspecified Category: Medical Plan: Recent TSH is slightly elevated, 4.53, free T4 is normal. Levothyroxine was recently increased to 137 mcg daily. Continue current treatment regimen. Perform repeat TSH/T4 a few days before next visit. Follow-up for transfer of care with a new provider in 2 months. Return sooner with symptoms or concerns. Verbalized understanding and agreed with the plan. (2) High cholesterol: Code(s): E78.00 - Pure hypercholesterolemia, unspecified Category: Medical Plan: Recent triglycerides is elevated, 190, LDL is slightly elevated, 103, HDL slightly low, 37, total cholesterol is normal. Continue current treatment regimen. Advised to limit foods high in saturated fat and avoid foods high in trans fat. Routine exercise encouraged. Fast for 10-12 hours, may drink water, and perform lipids and blood work few days before next visit. Follow-up in 2 months. Verbalized understanding and agreed with the plan. (3) Prediabetes: Code(s): R73.03 - Prediabetes Category: Medical Plan: Recent fasting glucose is elevated, 124. A1c today is 6.3%. He notes that he has had longstanding prediabetes. Metformin recommended to regulate his blood glucose but patient declines and notes that he will continue to make lifestyle changes with frequent monitoring of his A1c. Routine exercise and healthy diet, including low carbs encouraged. Follow-up as planned. Verbalized understanding and agreed with the treatment plan. Orders: Orders Lipid Panel 2 Months E78.00 - Pure hypercholesterolemia, unspecified TSH reflex Free T4 2 Months E03.9 - Hypothyroidism, unspecified AMB Hemoglobin A1c Today Z13.9 - Encounter for screening, unspecified
[2025-05-23 09:18] VITALS: BP 152/67; PULSE 61; RESP 16; TEMP 36.5; O2SAT 95; BMI 36.1
[2025-05-23 09:34] VITALS: BP 122/80
--- OUTSIDE RECORDS SUMMARY | 2025-05-23 09:55 | XMS_ITS | Data Portability ---
Author Organization [facility], [facility] Address [address] [place] [address] Care Team Providers Care Fitter Tacker Name Role Phone MEÑO JACKSON Primary Care Provider Assessment No assessment recorded. Plan of Treatment Reminders Order Date Submit Date Provider Last Modified By Organization Details Last Modified Time Details Appointments None recorded. Lab PSA, serum or plasma 2023 [facility], [address] [facility] [address], [place], [address], 21:25:36 HbA1c (hemoglobi n A1c), blood 2023 [facility], [address], [address], [place], [address], 21:25:36 microalbum in/creatin ine, mass ratio, urine 2023 [facility], [address], [address], [place], [address], 21:25:33 CBC w/ auto diff 2023 [facility], [address], [address], [place], [address], 21:25:33 CMP, serum or plasma 2023 [employer] [facility], [address], [address], [place], [address], 4 21:25:32 TSH, serum or plasma 2023 [facility] [address] [place] [address], [address], [place], [address], 4 21:25:35 lipid panel, serum 2023 [facility] [address], [address], [place], [address], 4 21:25:31 urinalysis , dipstick 2023 024 [email or web address] [facility], [address], [facility] [place], [address], 4 11:56:00 HbA1c (hemoglobi n A1c), blood 2022 023 [facility], [address] [place] [address], [address], [place], [address], 3 08:29:11 TSH, serum or plasma 2022 023 [facility], [address] [place] [address], [address], [place], [address], 3 08:29:09 CMP, serum or plasma 2022 023 [facility], [address] [place] [address], [address], [place], [address], 3 08:29:07 lipid panel, serum 2022 023 [facility], [address] [place] [address], [address], [place], [address], 3 08:29:06 urinalysis , dipstick 2022 023 [email or web address] [facility], [address], [place], [address], 11:01:17 CBC w/ auto diff 2022 023 YURIY [facility], [address], [address], [place], [address], 08:29:08 Referral None recorded. Procedures None recorded. Surgeries None recorded. Imaging None recorded. Medication Orders None recorded. Patient TargetsNo targets recorded. Patient Instructions Encounter Date Encounter Id Patient Instructions Last Modified By Organization Details Last Modified Time 04/15/2023 [id number] Discussed with patient importance of healthy eating habits and regular exercise. Discussed patient importance of routine dental care both the dentist and the eye doctor. Recommend daily multivitamin. Lastly, discussed with patient importance of advanced directive/living will and paper was provided for him to complete. [email or web address] Not available 04/15/2023 11:11:55 Reason for Referral None Reported. Results Created Date Observation Date Name Description Value Unit Range Abnormal Flag Note LastModifiedBy Organization Detail LastModifiedTime 04/16/2004/16/2023 LIPID PANEL WITH REFLE X TO DIREC T LDL cholesterol, total 180 mg/dL <200 normal Not Available [facility] [address], [address], 04/16/2023 08:29:05 04/16/20 23 04/16/2023 LIPID PANEL WITH REFLE X TO DIREC T LDL HDL cholesterol 43 mg/dL > or = 40 normal Not Available [facility] [address], [address], 04/16/2023 08:29:05 04/16/20 23 04/16/2023 LIPID PANEL WITH REFLE X TO DIREC T LDL triglyceride s 174 mg/dL <150 high Not Available [facility] [address], [address], 04/16/2023 08:29:05 04/16/20 23 04/16/2023 LIPID PANEL WITH REFLE X TO DIREC T LDL LDL-choleste rol 108 mg/dL _(clara c) high Refer ence range : <100 Uvaldo able range <100 mg/dL for prima ry preve ntion ; <70 mg/dL for patie nts with CHD or diabe tic patie nts with > or = 2 CHD risk facto rs. LDL-C is now calcu lated using the Bethanie n-Hop kins calcu latio n, which is a valid ated novel metho d provi ding marina r accur acy than the Fried jenaro equat ion in the estim ation of LDL-C . Bethanie duncan SS et al. ARBEN. 2013; 310(1 9): 2061- 2068 (http ://ed ucati on.[employer] rgSouthtree. 591wed/f aq/FA Q164) Not Available [facility] [place] [facility] [address], [address], 04/16/2023 08:29:05 04/16/20 23 04/16/2023 LIPID PANEL WITH REFLE X TO DIREC T LDL chol/HDLC ratio 4.2 (calc ) <5.0 normal Not Available [facility] [place] [facility] [address], [place], [address], 04/16/2023 08:29:05 04/16/20 23 04/16/2023 LIPID PANEL WITH REFLE X TO DIREC T LDL non HDL cholesterol 137 mg/dL _(clara c) <130 high For patie nts with diabe mayte plus 1 major ASCVD risk facto r, treat ing to a non-H DL-C goal of <100 mg/dL (LDL- C of <70 mg/dL ) is consi nanetted a alissa mullen optio n. Not Available [facility] [place] [facility] [address], [address], 04/16/2023 08:29:05 04/16/20 23 04/16/2023 COMPR EHENS HILTON METAB OLIC PANEL glucose 107 mg/dL 65-99 high Fasti ng refer ence inter cassandra For someo ne witho ut known diabe mayte, a gluco se value betwe en 100 and 125 mg/dL is consi stent with predi abete s and shoul d be confi rmed with a follo w-up test. Not Available [facility] [place] [facility] [address], [place], [address], 04/16/2023 08:29:07 04/16/2004/16/2023 COMPR EHENS HILTON METAB OLIC PANEL urea nitrogen (BUN) 18 mg/dL 7-25 normal Not Available [facility] [place] [facility] [address], [place], [address], 04/16/2023 08:29:07 04/16/20 23 04/16/2023 COMPR EHENS HILTON METAB OLIC PANEL creatinine 1.06 mg/dL 0.70-1 .35 normal Not Available [facility] [place] [facility] [address], [place], [address], 04/16/2023 08:29:07 04/16/20 23 04/16/2023 COMPR EHENS HILTON METAB OLIC PANEL eGFR 79 mL/mi n/1.7 3m2 > or = 60 normal Not Available [facility] [address], [place], [address], 04/16/2023 08:29:07 04/16/20 23 04/16/2023 COMPR EHENS HILTON METAB OLIC PANEL BUN/creatini ne ratio SEE NOTE: (calc ) 6-22 Not Repor young: BUN and Creat inine are withi n refer ence range . Not Available [facility] [place] [facility] [address], [place], [address], 04/16/2023 08:29:07 04/16/2004/16/2023 COMPR EHENS HILTON METAB OLIC PANEL sodium 139 mmol/ L 135-14 6 normal Not Available [facility] [address], [place], [address], 04/16/2023 08:29:07 04/16/20 23 04/16/2023 COMPR EHENS HILTON METAB OLIC PANEL potassium 4.2 mmol/ L 3.5-5. 3 normal Not Available [facility] [address], [place], [address], 04/16/2023 08:29:07 04/16/2004/16/2023 COMPR EHENS HILTON METAB OLIC PANEL chloride 105 mmol/ L 98-110 normal Not Available [facility] [address], [place], [address], 04/16/2023 08:29:07 04/16/2004/16/2023 COMPR EHENS HILTON METAB OLIC PANEL carbon dioxide 25 mmol/ L 20-32 normal Not Available [facility] [address], [place], [address], 04/16/2023 08:29:07 04/16/20 23 04/16/2023 COMPR EHENS HILTON METAB OLIC PANEL calcium 9.8 mg/dL 8.6-10 .3 normal Not Available [facility] [address], [place], [address], 04/16/2023 08:29:07 04/16/2004/16/2023 COMPR EHENS HILTON METAB OLIC PANEL protein, total 6.8 g/dL 6.1-8. 1 normal Not Available [facility] [address], [place], [address], 04/16/2023 08:29:07 04/16/2004/16/2023 COMPR EHENS HILTON METAB OLIC PANEL albumin 4.4 g/dL 3.6-5. 1 normal Not Available [facility] [address], [place], [address], 04/16/2023 08:29:07 04/16/20 23 04/16/2023 COMPR EHENS HILTON METAB OLIC PANEL globulin 2.4 g/dL_ (calc ) 1.9-3. 7 normal Not Available [facility] [address], [place], [address], 04/16/2023 08:29:07 04/16/20 23 04/16/2023 COMPR EHENS HILTON METAB OLIC PANEL albumin/glob ulin ratio 1.8 (calc ) 1.0-2. 5 normal Not Available [facility] [address], [place], [address], 04/16/2023 08:29:07 04/16/20 23 04/16/2023 COMPR EHENS HILTON METAB OLIC PANEL bilirubin, total 0.7 mg/dL 0.2-1. 2 normal Not Available [facility] [address], [place], [address], 04/16/2023 08:29:07 04/16/20 23 04/16/2023 COMPR EHENS HILTON METAB OLIC PANEL alkaline phosphatase 62 U/L 35-144 normal Not Available [email or web address] [address], [place], [address], 04/16/2023 08:29:07 04/16/20 23 04/16/2023 COMPR EHENS HILTON METAB OLIC PANEL AST 17 U/L 10-35 normal Not Available [facility] [address], [place], [address], 04/16/2023 08:29:07 04/16/20 23 04/16/2023 COMPR EHENS HILTON METAB OLIC PANEL ALT 19 U/L 9-46 normal Not Available [facility] [place] [facility] [address], [place], [address], 04/16/2023 08:29:07 04/16/20 23 04/16/2023 CBC (INCL UDES DIFF/ PLT) white blood cell count 6.1 thous and/u L 3.8-10 .8 normal Not Available [facility] [place] [facility] [address], [place], [address], 04/16/2023 08:29:08 04/16/2004/16/2023 CBC (INCL UDES DIFF/ PLT) red blood cell count 4.91 ludy on/uL 4.20-5 .80 normal Not Available [facility] [place] [facility] [address], [place], [address], 04/16/2023 08:29:08 04/16/20 23 04/16/2023 CBC (INCL UDES DIFF/ PLT) hemoglobin 15.4 g/dL 13.2-1 7.1 normal Not Available [facility] [place] [facility] [address], [place], [address], 04/16/2023 08:29:08 04/16/20 23 04/16/2023 CBC (INCL UDES DIFF/ PLT) hematocrit 45.5 % 38.5-5 0.0 normal Not Available [facility] [place] [facility] [address], [place], [address], 04/16/2023 08:29:08 04/16/2004/16/2023 CBC (INCL UDES DIFF/ PLT) MCV 92.7 fL 80.0-1 00.0 normal Not Available [facility] [place] [facility] [address], [place], [address], 04/16/2023 08:29:08 04/16/20 23 04/16/2023 CBC (INCL UDES DIFF/ PLT) MCH 31.4 pg 27.0-3 3.0 normal Not Available [facility] [place] [facility] [address], [place], [address], 04/16/2023 08:29:08 04/16/20 23 04/16/2023 CBC (INCL UDES DIFF/ PLT) MCHC 33.8 g/dL 32.0-3 6.0 normal Not Available [facility] [place] [facility] [address], [place], [address], 04/16/2023 08:29:08 04/16/20 23 04/16/2023 CBC (INCL UDES DIFF/ PLT) RDW 12.4 % 11.0-1 5.0 normal Not Available [facility] [place] [facility] [address], [place], [address], 04/16/2023 08:29:08 04/16/20 23 04/16/2023 CBC (INCL UDES DIFF/ PLT) platelet count 298 thous and/u L 140-40 0 normal Not Available [facility] [place] [facility] [address], [place], [address], 04/16/2023 08:29:08 04/16/20 23 04/16/2023 CBC (INCL UDES DIFF/ PLT) MPV 9.8 fL 7.5-12 .5 normal Not Available [facility] [address], [place], [address], 04/16/2023 08:29:08 04/16/2004/16/2023 CBC (INCL UDES DIFF/ PLT) absolute neutrophils 3471 cells /uL 1500-7 800 normal Not Available [facility] [address], [place], [address], 04/16/2023 08:29:08 04/16/20 23 04/16/2023 CBC (INCL UDES DIFF/ PLT) absolute lymphocytes 1598 cells /uL 850-39 00 normal Not Available [facility] [place] [facility] [address], [place], [address], 04/16/2023 08:29:08 04/16/20 23 04/16/2023 CBC (INCL UDES DIFF/ PLT) absolute monocytes 720 cells /uL 200-95 0 normal Not Available [facility] [place] [facility] [address], [place], [address], 04/16/2023 08:29:08 04/16/20 23 04/16/2023 CBC (INCL UDES DIFF/ PLT) absolute eosinophils 268 cells /uL 15-500 normal Not Available [facility] [place] [facility] [address], [place], [address], 04/16/2023 08:29:08 04/16/20 23 04/16/2023 CBC (INCL UDES DIFF/ PLT) absolute basophils 43 cells /uL 0-200 normal Not Available [facility] [place] [facility] [address], [place], [address], 04/16/2023 08:29:08 04/16/20 23 04/16/2023 CBC (INCL UDES DIFF/ PLT) neutrophils 56.9 % normal Not Available [facility] [place] [facility] [address], [place], [address], 04/16/2023 08:29:08 04/16/20 23 04/16/2023 CBC (INCL UDES DIFF/ PLT) lymphocytes 26.2 % normal Not Available [facility] [place] [facility] [address], [place], [address], 04/16/2023 08:29:08 04/16/20 23 04/16/2023 CBC (INCL UDES DIFF/ PLT) monocytes 11.8 % normal Not Available [facility] [place] [facility] [address], [place], [address], 04/16/2023 08:29:08 04/16/2004/16/2023 CBC (INCL UDES DIFF/ PLT) eosinophils 4.4 % normal Not Available [facility] [place] [facility] [address], [place], [address], 04/16/2023 08:29:08 04/16/20 23 04/16/2023 CBC (INCL UDES DIFF/ PLT) basophils 0.7 % normal Not Available [facility] [place] [facility] [address], [place], [address], 04/16/2023 08:29:08 04/16/2004/16/2023 TSH W/REF GOOD TO FT4 TSH w/reflex to FT4 3.22 mIU/L 0.40-4 .50 normal Not Available [facility] [place] [facility] [address], [place], [address], 04/16/2023 08:29:09 04/16/2004/16/2023 HEMOG LOBIN A1C hemoglobin A1C 5.8 %_of_ total _HGB <5.7 high For someo ne witho ut known diabe mayte, a hemog lobin A1c value betwe en 5.7% and 6.4% is consi stent with predi abete s and shoul d be confi rmed with a follo w-up test. For someo ne with known diabe mayte, a value <7% indic ates that their diabe mayte is well contr olled . A1c targe ts shoul d be indiv idual ized based on durat ion of diabe mayte, age, comor bid condi tions , and other consi derat ions. This assay resul t is consi stent with an incre ased risk of diabe mayte. Curre ntly, no conse nsus exist s regar ding use of hemog lobin A1c for diagn osis of diabe mayte for child lauren. NO COLLE CTION DATE RECEI VALENTINA. WE HAVE USED THE DATE THE SPECI MEN WAS RECEI VALENTINA BY THIS LABOR ATORY THE COLLE CTION DATE. IF THIS IS INCOR RECT, PLEAS E CONTA CT CLIEN T SERVI RADHA. PHONE ERIKA R: [phone] Not Available [facility] [place] [facility] [address], [place], [address], 04/16/2023 08:29:11 04/15/2004/15/2023 urina lysis , dipst ick Glucose Negati ve Not Available [facility] [address] [facility], [place], [address], 04/15/2023 10:59:03 04/15/2004/15/2023 urina lysis , dipst ick Appearance Clear Not Available [facility] [address] [facility], [place], [address], 04/15/2023 10:59:03 04/15/2004/15/2023 urina lysis , dipst ick Color Yellow Not Available [facility] [address] [facility], [place], [address], 04/15/2023 10:59:03 04/15/2004/15/2023 urina lysis , dipst ick Leukocytes Negati ve Not Available [facility] [address] [facility], [place], [address], 04/15/2023 10:59:03 04/15/2004/15/2023 urina lysis , dipst ick Nitrate Negati ve Not Available [facility] [address] [facility], [place], [address], 04/15/2023 10:59:03 04/15/2004/15/2023 urina lysis , dipst ick Urobilinogen Negati ve Not Available [facility] [address] [facility], [place], [address], 04/15/2023 10:59:03 04/15/2004/15/2023 urina lysis , dipst ick Protein Negati ve Not Available [facility] [address], [place], [address], 04/15/2023 10:59:03 04/15/2004/15/2023 urina lysis , dipst ick pH 6.0 Not Available [facility] [address], [place], [address], 04/15/2023 10:59:03 04/15/2004/15/2023 urina lysis , dipst ick Blood Negati ve Not Available [facility] [address], [place], [address], 04/15/2023 10:59:03 04/15/2004/15/2023 urina lysis , dipst ick Specific [place] 1.020 Not Available [facility] [address], [place], [address], 04/15/2023 10:59:03 04/15/2004/15/2023 urina lysis , dipst ick Ketone Negati ve Not Available [facility] [address], [place], [address], 04/15/2023 10:59:03 04/15/2004/15/2023 urina lysis , dipst ick Bilirubin Negati ve Not Available [facility] [address], [place], [address], 04/15/2023 10:59:03 04/19/2004/20/2024 LIPID PANEL WITH REFLE X TO DIREC T LDL cholesterol, total 190 mg/dL <200 normal Not Available [facility] [address], [place], [address], 04/20/2024 21:25:31 04/19/20 24 04/20/2024 LIPID PANEL WITH REFLE X TO DIREC T LDL HDL cholesterol 42 mg/dL > or = 40 normal Not Available [facility] [place] [facility] [address], [place], [address], 04/20/2024 21:25:31 04/19/2004/20/2024 LIPID PANEL WITH REFLE X TO DIREC T LDL triglyceride s 144 mg/dL <150 normal Not Available [facility] [place] [facility] [address], [place], [address], 04/20/2024 21:25:31 04/19/2004/20/2024 LIPID PANEL WITH REFLE X TO DIREC T LDL LDL-choleste rol 122 mg/dL _(clara c) high Refer ence range : <100 Uvaldo able range <100 mg/dL for prima ry preve ntion ; <70 mg/dL for patie nts with CHD or diabe tic patie nts with > or = 2 CHD risk facto rs. LDL-C is now calcu lated using the Bethanie duncan-Hop kins nikkiu steph n, which is a valid ated novel antonio calix marina r accur acy than the Fried jenaro equat ion in the estim ation of LDL-C . Bethanie duncan SS et al. ARBNE. 2013; 310(1 9): 2061- 2068 (http ://ed ucati on.[employer] t[employer]. com/f aq/FA Q164) Not Available [facility] [place] [facility] [address], [place], [address], 04/20/2024 21:25:31 04/19/20 24 04/20/2024 LIPID PANEL WITH REFLE X TO DIREC T LDL chol/HDLC ratio 4.5 (calc ) <5.0 normal Not Available [facility] [place] [facility] [address], [place], [address], 04/20/2024 21:25:31 04/19/2004/20/2024 LIPID PANEL WITH REFLE X TO DIREC T LDL non HDL cholesterol 148 mg/dL _(clara c) <130 high For patie nts with diabe mayte plus 1 major ASCVD risk facto r, treat ing to a non-H DL-C goal of <100 mg/dL (LDL- C of <70 mg/dL ) is consi dered a thera peuti c optio n. Not Available [facility] [place] [facility] [address], [place], [address], 04/20/2024 21:25:31 04/19/2004/20/2024 COMPR EHENS HILTON METAB OLIC PANEL glucose 111 mg/dL 65-99 high Fasti ng refer ence inter cassandra For someo ne witho ut known diabe mayte, a gluco se value betwe en 100 and 125 mg/dL is consi stent with predi abete s and shoul d be confi rmed with a follo w-up test. Not Available [facility] [place] [facility] [address], [place], [address], 04/20/2024 21:25:32 04/19/2004/20/2024 COMPR EHENS HILTON METAB OLIC PANEL urea nitrogen (BUN) 18 mg/dL 7-25 normal Not Available [facility] [place] [facility] [address], [place], [address], 04/20/2024 21:25:32 04/19/2004/20/2024 COMPR EHENS HILTON METAB OLIC PANEL creatinine 1.08 mg/dL 0.70-1 .35 normal Not Available [facility] [place] [facility] [address], [place], [address], 04/20/2024 21:25:32 04/19/20 24 04/20/2024 COMPR EHENS HILTON METAB OLIC PANEL eGFR 77 mL/mi n/1.7 3m2 > or = 60 normal Not Available [facility] [place] [facility] [address], [place], [address], 04/20/2024 21:25:32 04/19/2004/20/2024 COMPR EHENS HILTON METAB OLIC PANEL BUN/creatini ne ratio SEE NOTE: (calc ) 6-22 Not Repor young: BUN and Creat inine are withi n refer ence range . Not Available [facility] [place] [facility] [address], [place], [address], 04/20/2024 21:25:32 04/19/2004/20/2024 COMPR EHENS HILTON METAB OLIC PANEL sodium 140 mmol/ L 135-14 6 normal Not Available [facility] [place] [facility] [address], [place], [address], 04/20/2024 21:25:32 04/19/20 24 04/20/2024 COMPR EHENS HILTON METAB OLIC PANEL potassium 4.1 mmol/ L 3.5-5. 3 normal Not Available [facility] [place] [facility] [address], [place], [address], 04/20/2024 21:25:32 04/19/20 24 04/20/2024 COMPR EHENS HILTON METAB OLIC PANEL chloride 106 mmol/ L 98-110 normal Not Available [facility] [address], [place], [address], 04/20/2024 21:25:32 04/19/20 24 04/20/2024 COMPR EHENS HILTON METAB OLIC PANEL carbon dioxide 26 mmol/ L 20-32 normal Not Available [facility] [address], [place], [address], 04/20/2024 21:25:32 04/19/20 24 04/20/2024 COMPR EHENS HILTON METAB OLIC PANEL calcium 9.3 mg/dL 8.6-10 .3 normal Not Available [facility] [address], [place], [address], 04/20/2024 21:25:32 04/19/20 24 04/20/2024 COMPR EHENS HILTON METAB OLIC PANEL protein, total 6.7 g/dL 6.1-8. 1 normal Not Available [facility] [address], [place], [address], 04/20/2024 21:25:32 04/19/2004/20/2024 COMPR EHENS HILTON METAB OLIC PANEL albumin 4.2 g/dL 3.6-5. 1 normal Not Available [facility] [address], [place], [address], 04/20/2024 21:25:32 04/19/20 24 04/20/2024 COMPR EHENS HILTON METAB OLIC PANEL globulin 2.5 g/dL_ (calc ) 1.9-3. 7 normal Not Available [facility] [address], [place], [address], 04/20/2024 21:25:32 04/19/20 24 04/20/2024 COMPR EHENS HILTON METAB OLIC PANEL albumin/glob ulin ratio 1.7 (calc ) 1.0-2. 5 normal Not Available [facility] [address], [place], [address], 04/20/2024 21:25:32 04/19/20 24 04/20/2024 COMPR EHENS HILTON METAB OLIC PANEL bilirubin, total 0.7 mg/dL 0.2-1. 2 normal Not Available [facility] [address], [place], [address], 04/20/2024 21:25:32 04/19/20 24 04/20/2024 COMPR EHENS HILTON METAB OLIC PANEL alkaline phosphatase 64 U/L 35-144 normal Not Available [email or web address] [address], [place], [address], 04/20/2024 21:25:32 04/19/20 24 04/20/2024 COMPR EHENS HILTON METAB OLIC PANEL AST 17 U/L 10-35 normal Not Available [facility] [address], [place], [address], 04/20/2024 21:25:32 04/19/2004/20/2024 COMPR EHENS HILTON METAB OLIC PANEL ALT 19 U/L 9-46 normal Not Available [facility] [address], [place], [address], 04/20/2024 21:25:32 04/19/2004/20/2024 ALBUM IN, RANDO M URINE W/CRE ATINI NE creatinine, random urine 101 mg/dL 20-320 normal Not Available [facility] [address], [place], [address], 04/20/2024 21:25:33 04/19/2004/20/2024 ALBUM IN, RANDO M URINE W/CRE ATINI NE albumin, urine 12.2 mg/dL see note: normal Refer ence Range : Refer ence Range Not estab lishe d Not Available [facility] [address], [place], [address], 04/20/2024 21:25:33 04/19/2004/20/2024 ALBUM IN, RANDO M URINE W/CRE ATINI NE albumin/crea tinine ratio, random urine 121 mg/g_ creat <30 high The ADA defin es abnor malit ies in album in excre tion as follo ws: Album inuri a Categ ory Resul t (mg/g creat inine ) June l to Mildl y incre ased <30 Moder ately incre ased 30-29 9 Sever hakeem incre ased > OR = 300 The ADA recom mends that at least two of three speci mens colle cted withi n a 3-6 month perio d be abnor mal befor e consi issa g a patie nt to be withi n a diagn ostic categ ory. Not Available [facility] [facility] [place] [facility] [address], [place], [address], 04/20/2024 21:25:33 04/19/20 24 04/20/2024 CBC (INCL UDES DIFF/ PLT) white blood cell count 6.0 thous and/u L 3.8-10 .8 normal Not Available [facility] [place] [facility] [address], [place], [address], 04/20/2024 21:25:33 04/19/20 24 04/20/2024 CBC (INCL UDES DIFF/ PLT) red blood cell count 4.72 ludy on/uL 4.20-5 .80 normal Not Available [facility] [place] [facility] [address], [place], [address], 04/20/2024 21:25:33 04/19/20 24 04/20/2024 CBC (INCL UDES DIFF/ PLT) hemoglobin 15.0 g/dL 13.2-1 7.1 normal Not Available [facility] [place] [facility] [address], [place], [address], 04/20/2024 21:25:33 04/19/20 24 04/20/2024 CBC (INCL UDES DIFF/ PLT) hematocrit 43.8 % 38.5-5 0.0 normal Not Available [facility] [address], [place], [address], 04/20/2024 21:25:33 04/19/20 24 04/20/2024 CBC (INCL UDES DIFF/ PLT) MCV 92.8 fL 80.0-1 00.0 normal Not Available [facility] [place] [facility] [address] [place], [place], [address], 04/20/2024 21:25:33 04/19/2004/20/2024 CBC (INCL UDES DIFF/ PLT) MCH 31.8 pg 27.0-3 3.0 normal Not Available [facility] [place] [facility] [address] [place], [place], [address], 04/20/2024 21:25:33 04/19/2004/20/2024 CBC (INCL UDES DIFF/ PLT) MCHC 34.2 g/dL 32.0-3 6.0 normal For adult s, a sligh t decre ase in the calcu lated MCHC value (in the range of 30 to 32 g/dL) is most likel y not clini kellen signi samuel t; leo er, it shoul d be inter prete d with cauti on in [facility] n with other red cell juan eters and the patie nt's clini clara condi tion. Not Available [facility] [place] [facility] [address], [place], [address], 04/20/2024 21:25:33 04/19/2004/20/2024 CBC (INCL UDES DIFF/ PLT) RDW 12.2 % 11.0-1 5.0 normal Not Available [facility] [place] [facility] [address] [place], [place], [address], 04/20/2024 21:25:33 04/19/2004/20/2024 CBC (INCL UDES DIFF/ PLT) platelet count 312 thous and/u L 140-40 0 normal Not Available [facility] [place] [facility] [address], [place], [address], 04/20/2024 21:25:33 04/19/20 24 04/20/2024 CBC (INCL UDES DIFF/ PLT) MPV 10.3 fL 7.5-12 .5 normal Not Available [facility] [place] [facility] [address], [place], [address], 04/20/2024 21:25:33 04/19/20 24 04/20/2024 CBC (INCL UDES DIFF/ PLT) absolute neutrophils 3282 cells /uL 1500-7 800 normal Not Available [facility] [place] [facility] [address], [place], [address], 04/20/2024 21:25:33 04/19/2004/20/2024 CBC (INCL UDES DIFF/ PLT) absolute lymphocytes 1692 cells /uL 850-39 00 normal Not Available [facility] [place] [facility] [address], [place], [address], 04/20/2024 21:25:33 04/19/2004/20/2024 CBC (INCL UDES DIFF/ PLT) absolute monocytes 708 cells /uL 200-95 0 normal Not Available [facility] [place] [facility] [address], [place], [address], 04/20/2024 21:25:33 04/19/20 24 04/20/2024 CBC (INCL UDES DIFF/ PLT) absolute eosinophils 258 cells /uL 15-500 normal Not Available [facility] [place] [facility] [address], [place], [address], 04/20/2024 21:25:33 04/19/20 24 04/20/2024 CBC (INCL UDES DIFF/ PLT) absolute basophils 60 cells /uL 0-200 normal Not Available [facility] [place] [facility] [address], [place], [address], 04/20/2024 21:25:33 04/19/20 24 04/20/2024 CBC (INCL UDES DIFF/ PLT) neutrophils 54.7 % normal Not Available [facility] [place] [facility] [address], [place], [address], 04/20/2024 21:25:33 04/19/20 24 04/20/2024 CBC (INCL UDES DIFF/ PLT) lymphocytes 28.2 % normal Not Available [facility] [address], [address], 04/20/2024 21:25:33 04/19/20 24 04/20/2024 CBC (INCL UDES DIFF/ PLT) monocytes 11.8 % normal Not Available [facility] [place] [facility] [address], [place], [address], 04/20/2024 21:25:33 04/19/20 24 04/20/2024 CBC (INCL UDES DIFF/ PLT) eosinophils 4.3 % normal Not Available [facility] [place] [facility] [address], [place], [address], 04/20/2024 21:25:33 04/19/20 24 04/20/2024 CBC (INCL UDES DIFF/ PLT) basophils 1.0 % normal Not Available [facility] [address], [address], 04/20/2024 21:25:33 04/19/2004/20/2024 TSH W/REF GOOD TO FT4 TSH w/reflex to FT4 1.62 mIU/L 0.40-4 .50 normal Not Available [facility] [place] [facility] [address], [address], 04/20/2024 21:25:35 04/19/2004/20/2024 PSA, TOTAL WITH REFLE X TO PSA, FREE PSA, total 1.0 NG/mL < or = 4.0 normal The Total PSA value from this assay miguel mario is stand ardiz ed again st the equim olar PSA stand kavin. The test resul t will be appro ximat hakeem 20% highe r when freddy red to the WHO-s tanda rdize d Total PSA (Siem ens assay ). Freddy rison of seria l PSA resul ts shoul d be inter prete d with this fact in mind. PSA was perfo rmed using the Beckm an Coult er Immun oassa y metho d. Value s obtai sabrina from diffe rent assay metho ds canno t be used inter godfrey eably . PSA level s, regar dless of value , shoul d not be inter prete d as absol sault ste. marie evide nce of the prese nce or absen ce of disea se. Not Available [facility] [place] [facility] [address], [address], 04/20/2024 21:25:35 04/19/2004/20/2024 HEMOG LOBIN A1C WITH MPG hemoglobin A1C 6.2 %_of_ total _HGB <5.7 high For someo ne witho ut known diabe mayte, a hemog lobin A1c value betwe en 5.7% and 6.4% is consi stent with predi abete s and shoul d be confi rmed with a follo w-up test. For someo ne with known diabe mayte, a value <7% indic ates that their diabe mayte is well contr olled . A1c targe ts shoul d be indiv idual ized based on durat ion of diabe mayte, age, comor bid condi tions , and other consi derat ions. This assay resul t is consi stent with an incre ased risk of diabe mayte. Curre ntly, no conse nsus exist s regar ding use of hemog lobin A1c for diagn osis of diabe mayte for child lauren. Not Available [facility] [place] [facility] [address], [address], 04/20/2024 21:25:36 04/19/20 24 04/20/2024 HEMOG LOBIN A1C WITH MPG mean plasma glucose 143 mg/dL _(clara c) Not Available [facility] [place] [facility] [address], [place], [address], 04/20/2024 21:25:36 04/19/2004/19/2024 urina lysis , dipst ick Glucose Negati ve Not Available [facility] [address] [facility], [place], [address], 04/19/2024 10:56:13 04/19/2004/19/2024 urina lysis , dipst ick Leukocytes Negati ve Not Available [facility] [address] [facility], [place], [address], 04/19/2024 10:56:13 04/19/2004/19/2024 urina lysis , dipst ick Nitrate Negati ve Not Available [facility] [address] [facility], [place], [address], 04/19/2024 10:56:13 04/19/2004/19/2024 urina lysis , dipst ick Urobilinogen Negati ve Not Available [facility] [address] [facility], [place], [address], 04/19/2024 10:56:13 04/19/2004/19/2024 urina lysis , dipst ick Protein Trace Not Available [facility] [address] [facility], [place], [address], 04/19/2024 10:56:13 04/19/2004/19/2024 urina lysis , dipst ick pH 5.5 Not Available [facility] [address] [facility], [place], [address], 04/19/2024 10:56:13 04/19/20 24 04/19/2024 urina lysis , dipst ick Blood Negati ve Not Available [facility] [address] [facility], [place], [address], 04/19/2024 10:56:13 04/19/2004/19/2024 urina lysis , dipst ick Specific [place] 1.020 Not Available [facility] [address] [facility], [place], [address], 04/19/2024 10:56:13 04/19/2004/19/2024 urina lysis , dipst ick Ketone Negati ve Not Available [facility] [address] [facility], [place], [address], 04/19/2024 10:56:13 04/19/2004/19/2024 urina lysis , dipst ick Bilirubin Negati ve Not Available [facility] [address] [facility], [place], [address], 04/19/2024 10:56:13 05/01/2009/11/2022 elect loyar diogr am No observ ation record ed. [email or web address] Not Available 2023 03:33:46 05/01/20 24 03/31/2023 imagi ng/di agnos tic resul t No observ ation record ed. [email or web address] Not Available 2023 03:33:57 05/01/20 24 03/31/2023 imagi ng/di agnos tic resul t No observ ation record ed. [email or web address] Not Available 2023 03:33:58 05/01/20 24 03/31/2023 imagi ng/di agnos tic resul t No observ ation record ed. [email or web address] Not Available 2023 03:34:00 Result Notes None recorded. Problems Name Problem SNOMED Code Status Onset Date Resolution Date Notes Provider Name and Address Organization Details Recorded Time History and physical examinat ion, administ rative Completed 04/15/2023 Problem Code: Z02.89; Problem Code Type: ICD-10; Meño Jackson DO [address] [facility], [place], [address], [place] [employer] [facility] 3 10:59:16 Adult health examinat ion Active Problem Code: Z00.00; Problem Code Type: ICD-10; Meño Jackson DO [address] [facility], [place], [address], [place] [employer] [facility] 3 10:59:05 Prediabe mayte 456626678 Active Problem Code: R73.03; Problem Code Type: ICD-10; Meño Jackson DO [address] [facility], [place], [address], [employer] [facility] 3 10:59:05 Hernia of anterior abdomina l wall 711897600 Completed 04/15/2023 surgical repair 09/2022 Problem Code: K43.9; Problem Code Type: ICD-10; Meño Jackson DO [address] [facility], [place], [address], [employer] [facility] 3 10:59:16 Body mass index 30+ - obesity 989493657 Active Problem Code: Z68.34; Problem Code Type: ICD-10; Meño Jackson DO [address] [facility], [place], [address], [employer] [facility] 3 10:59:05 Severe obesity 33281591989 104 Completed 04/15/2023 Problem Code: E66.01; Problem Code Type: ICD-10; Meño Jackson DO [address] [facility], [place], [address], [place] [employer] [facility] 3 10:59:16 Hyperlip idemia 01576087 Active on lovastat in Problem Code: E78.5; Problem Code Type: ICD-10; Meño Jackson DO [address] [facility], [place], [address], [place] [employer] [facility] 3 10:59:05 Hypothyr oidism 99541004 Active on levothyr oxine Problem Code: E03.9; Problem Code Type: ICD-10; Meño Jackson DO [address] [facility], [place], [address], [facility] [employer] [facility] 3 10:59:05 Family history of breast cancer 523843257 Active mother dx age 30s Problem Code: Z80.3; Problem Code Type: ICD-10; Meño Jackson DO [address] [facility], [place], [address], [facility] [employer] [facility] 3 10:59:05 Refusal of treatmen t by patient [id number] Active refuses colonosc opy and cologuar d Problem Code: Z53.29; Problem Code Type: ICD-10; Meño Jackson DO [address] [facility], [place], [address], [facility] [employer] [facility] 3 10:59:05 External hearing aid in situ 153264035 Active B/L Problem Code: Z97.4; Problem Code Type: ICD-10; Meño Jackson DO [address] [facility], [place], [address], [employer] [facility] 3 10:59:05 Mixed hyperlip idemia 290697108 Completed 04/15/2023 Problem Code: E78.2; Problem Code Type: ICD-10; Meño Jackson DO [address] [place], [address], [facility] [employer] [facility] 3 10:59:16 Problem Notes None recorded. Procedures Surgical History Date Name Laterality Status Provider Name and Address Organization Details Recorded Time 024 [id number] completed DO [place], [address] , [facility] 04/19/2024 11:49:55 024 [id number] 189 completed [place], [address] , [facility] [employer] [facility] 04/19/2024 11:56:12 023 EGFPAdvancedDirective completed Meño Jackson DO [address] [facility], [place], [address] , [facility] 04/15/2023 11:07:11 Imaging Results None recorded. Procedure Notes None recorded. Medical Equipment None Reported. Allergies No known drug allergies Medications Name Sig Start Date Stop Date Status Note LastModified by Organization Details LastModified Time lovastatin 40 mg tablet TAKE 1 TABLET BY MOUTH ONCE DAILY AT BEDTIME 2024 active Not Available Not Available Not Avai lable levothyroxine 125 mcg tablet TAKE 1 TABLET BY MOUTH ONCE DAILY 2024 active Not Available Not Available Not Avai lable Fish Oil 2400 mg po BID 2020 active Not Available Not Available Not Avai lable Vitamin D3 50 mcg (2,000 unit) capsule 1 cap po qD 2020 active Not Available Not Available Not Avai lable Vitals Date Recorded Body height Body mass index (BMI) Body weight Oxygen saturation Oxygen saturation in Arterial blood by Pulse oximetry Heart rate Body temperature Systolic And Diastolic Provider Name and Address Organization Details Last Updated DateTime 3 189.865 cm 33.8 kg/m2 628230. 35 g 98 % 98 % 56 /min 96.9 [degF] 126/84 mm[Hg] Ranjeet Og [facility] 3 10:44:57 Date Recorded Body height Body mass index (BMI) Body weight Body temperature Oxygen saturation Oxygen saturation in Arterial blood by Pulse oximetry Heart rate Systolic And Diastolic Provider Name and Address Organization Details Last Updated DateTime 4 189.87 cm 33.2 kg/m2 911428. 39 g 97 [degF] 96 % 96 % 54 /min 138/78 mm[Hg] Alyx Mayberry [facility] 4 10:38:02 Social History Question Answer Notes LastModified by Organization Details LastModified Time Tobacco Smoking Status Never Smoker Not Available [employer] 03/30/2023 12:20:12 Do You Have An Advance Directive? Yes [email or web address] Information not available 04/19/2024 What Is Your Advocate's Name? Gabriela Kamla [email or web address] Information not available 04/19/2024 What Is Your Relation To The Advocate? Spouse [email or web address] Information not available 04/19/2024 Do You Wear A Helmet When Biking? Yes [email or web address] Information not available 04/19/2024 Are You Blind Or Do You Have Difficulty Seeing? No [email or web address] Information not available 04/19/2024 Is Blood Transfusion Acceptable In An Emergency? Yes [email or web address] Information not available 04/19/2024 Are You Deaf Or Do You Have Serious Difficulty Hearing? Yes Bilateral Hearing Aids [email or web address] Information not available 04/19/2024 What Type Of Diet Are You Following? REGULAR [email or web address] Information not available 04/19/2024 What Is The Highest Grade Or Level Of School You Have Completed Or The Highest Degree You Have Received? [id number] [email or web address] Information not available 04/19/2024 Have There Been Any Changes To Your Family Or Social Situation? No [email or web address] Information not available 04/19/2024 What Is The Fluoride Status Of Your Home? Fluoridated [email or web address] Information not available 04/19/2024 Which Of Your Hands Is Dominant? Right [email or web address] Information not available 04/19/2024 Where Do You Live? [facility] [email or web address] Information not available 04/19/2024 Do You Have A Medical Power Of Methods And Procedures Analyst? Yes Gabriela Cason [email or web address] Information not available 04/19/2024 What Was The Date Of Your Most Recent Tobacco Screening? 04/19/2024 [email or web address] Information not available 04/19/2024 How Many Children Do You Have? 3 [email or web address] Information not available 04/19/2024 Do You Have A Patient Advocate? Yes [email or web address] Information not available 04/19/2024 Do You Have Any Pets? No [email or web address] Information not available 04/19/2024 What Is Your Relationship Status? Information not available 04/19/2024 Do You Use Your Seat Belt Or Car Seat Routinely? Yes [email or web address] Information not available 04/19/2024 Are You Sexually Active? Yes [email or web address] Information not available 04/19/2024 Do You Have Any Siblings? Yes [email or web address] Information not available 04/19/2024 Do You Have Smoke And Carbon Monoxide Detectors In Your Home? Yes [email or web address] Information not available 04/19/2024 Are There Any Smokers In Your House? No [email or web address] Information not available 04/19/2024 Do You Participate In Social Media? No [email or web address] Information not available 04/19/2024 What Types Of Sporting Activities Do You Participate In? Walking [email or web address] Information not available 04/19/2024 Do You Use Sunscreen Routinely? Yes Information not available 04/19/2024 Has Tobacco Cessation Counseling Been Provided? Yes [email or web address] Information not available 04/19/2024 Are You Currently In School? No [email or web address] Information not available 04/19/2024 Sex: Unknown Functional Status Question Answer Note LastModified by Organization Details LastModified Time How many times per week do you consume alcohol? 1-2 times per week [employer] storyQue stion: 'Alcohol '; [employer] storyKezia che: '1'; [email or web address] Information not available 04/19/2024 Do you use any illicit or recreational drugs? No [email or web address] Information not available 03/30/2023 Do you or have you ever used any other forms of tobacco or nicotine? No [email or web address] Information not available 04/19/2024 What is your level of alcohol consumption? 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 Moderate Information not available 04/19/2024 What type of noise exposure are you exposed to? noExposureToExcessiveNois e [email or web address] Information not available 04/19/2024 Mental Status Question Answer Note LastModified by Organizat ion Details LastModified Time Do you feel stressed (tense, restless, nervous, or anxious, or unable to sleep at night)? [id number] Information not available 04/19/2024 Do you have difficulty concentrating, remembering or making decisions? No Information no t available 04/19/2024 Family History Nothing Reported Notes:Family History: Father : age 87 from sepsis Mother: alive age 87, h/o macular degeneration, h/o breast CA, former smoker Hypertension: no Hyperlipidemia: no Coronary heart disease: no Stroke or other vascular disease: no Diabetes mellitus: no Breast cancer: yes, mother dx age 30s Pancreatic cancer: no Colorectal cancer: no Lung cancer: no Prostate cancer: no Skin cancer: no Alzheimer's: no Alcoholism: no Mental illness: no Medical History No medical history recorded. Immunizations Vaccine Type Date Status Note Provider Nam e and Address Organization Details Recorded Time Influenza, split virus, trivalent, PF 4 completed Meño Jackson DO [address] [place], [address], [facility] 04/19/2024 11:48:36 Influenza, split virus, quadrivalent, PF 1 completed Not Available [facility] 04/20/2023 07:03:59 SARS-COV-2 (COVID-19) vaccine, UNSPECIFIED 1 completed Not Available [facility] 04/20/2023 07:04:02 SARS-COV-2 (COVID-19) vaccine, UNSPECIFIED 1 completed Not Available [facility] 04/20/2023 07:04:03 SARS-COV-2 (COVID-19) vaccine, UNSPECIFIED 1 completed Not Available [facility] 04/20/2023 07:04:03 Tdap 1 completed Not Available [facility] 04/20/2023 07:04:04 Influenza, split virus, quadrivalent, PF 2 completed Not Available [facility] 04/20/2023 07:04:04 Influenza, split virus, quadrivalent, PF 3 completed Isabell jauregui, [facility] 04/15/2023 11:52:06 Past Encounters Encounter ID Performer Location Encounter Start Date Encounter Closed Date Diagnosis/Indication Diagnosis SNOMED-CT Code Diagnosis ICD10 Code Diagnosis IMO Codes Diagnosis Note [id number] Meño Jackson DO [address] [address] 04/15/2023 10:17:48 04/15/2023 11:24:42 Adult health examination 689395696 Z00.00 Patient presents for [facility] [place] [facility] examinatio n.Urinalys is in the office is within normal limits.Flu vaccine were given today, UTD on tetanus vaccine. He wants to double check with his INS about coverage for the Shingrix vaccine. Active or passive immunization 729896240 Z23 Hyperlipidemia 25428611 E78.5 compliant with medication , no side effects Hypothyroidism 78554759 E03.9 euthyroid by Rx Prediabetes 923992943 R7 3.03 asymptomat ic Refusal of treatment by patient 700245553 Z53.20 Patient has never participat ed in any colon cancer screening. He refuses a and rectal examinatio n despite education. Patient states that there is no family history of colon cancer and he does not have any issues so he does not feel like he needs to be tested. I still strongly encourage patient to complete the Cologuard that he has at home. The patient may choose to or not to participat e in colon cancer screening as I have educated him about the risks associated with lack of screening and he has verbalized understand ing. [id number] Meño Jackson, [address] [address] 04/19/2024 10:02:52 04/19/2024 11:11:25 Adult health examination 706833478 Z00.00 Patient presents for [facility] [place] [facility] examinatio n.Patient' s chart was reviewedPa tient declined /rectal examUrinal ysis in the office is within normal limits.Lab work was drawnDespi te education patient still refuses colon cancer screening with either colonoscop y, Cologuard, or FOBTHe is reportedly up-to-date with a dentist, eye doctor, and dermatolog istFlu vaccine were given today, UTD on tetanus vaccine. He wants to double check with his INS about coverage for the Shingrix vaccine.Re commended daily multivitam inLastly, patient reports he has an advance directive at home and only a copy of the office Screening for malignant neoplasm of prostate 359751991 Z12.5 436160 Prediabetes 467419151 R7 3.03 asymptomat ic, recommend cutting back on carbs and sugars Active or passive immunization 126315911 Z23 Postvaccin ation expectatio ns and potential complicati on/side effects reviewed with the patient and they verbalized understand ing Colon canc er screening declined 7280368474 9109 Z53.20 [id number] Health Concerns Section Related Observation LastModified by Organization Detai ls LastModified Time None Recorded Concern Status LastModified by Organization Details LastModified Time None Recorded Advance Directives Directive Y: Payers Insurance Date Sequence Insurance Name Policy Number Policy Nunez Covered Member ID Nunez Member ID Guarantor Name 12/21/2024 1 [place] [id number] Andrey Edmonds [id number] BF Andrey Edmonds Notes Date Note Type Note Provider Name and Address Organization Details Recorded Time 04/15/2023 text/html Annual WellnessReported by Patient 62-year-old male who presents for comprehensive wellness examination.Patient states umbilical hernia repair went wellPatient is planning to retire in July 2022 from work, [place] U[place] with dentist, eye doctor, and dermatologistHe is fasting for blood workHe would like a flu shot today. Meño Jackson DO [address] [place], [address], [facility] 04/15/2023 11:18:21 04/19/2024 text/html 63-year-old male who presents for comprehensive wellness examination.Patient has not had colonoscopy or completed cologuardHe is reportedly UTD with dentist, eye doctor, and dermatologistHe is fasting for blood workHe would like a flu shot today. Meño Jackson DO 13 [place], [address], [employer] 04/19/2024 11:58:04
--- OUTSIDE RECORDS SUMMARY | 2025-05-23 09:55 | XMS_ITS | Clinical Summary ---
Author Organization [facility] Address [address] [place] [address] Care Team Providers Care Consumer Credit Counselor Name Role Phone Meño Jackson DO Primary Care Provider [phone] Surgical History Surgery Date Site/Laterality Comments WISDOM TOOTH EXTRACTION PROCEDURE:WISDOM TOOTH EXTRACTION HERNIA REPAIR 09/19/2022 N/A PROCEDURE:HERNIA REPAIR;COMMENT:Procedure: LAPAROSCOPY REPAIR HERNIA ABDOMINAL WALL / INCISIONAL / VENTRAL, INITIAL (REDUCIBLE ANY SIZE, INCARCERATED OR STRANGULATED 10 CM OR LESS); Surgeon: Rony Foster MD; Location: [facility] MAIN OPERATING ROOM; Service: General; Laterality: N [...] 07/13/2024 Falls Risk Assessment 11/02/2024 COVID-19 Vaccine ( - 2024-2 6 season) 2025 Influenza Vaccine (#1) 2025 05/12/2018 [...] this topic Medical Devices Implanted Type Area Chemical Process Project Engineer Device Identifier Shelf Expiration Date Model / Serial / Lot Mesh Ventralight Circ 4.5in Crba-Davl [id number] Implanted:Qty: 1 on 09/19/2022 by Rony Foster MD N/A: [employer] 02/07/2024 [id number] / / [id number] Advance Directives Documents on File Type Date Recorded Patient Personnel Director Expl anation Health Care Decision (hx) 09/19/2022 ADVANCE DIRECTIVE AN D LIVING WILL Care Teams Consumer Credit Counselor Relationship Specialty Start Date End Date Meño Jackson DO [address] [place] [id number] PCP - General 05/23/22
--- OUTSIDE RECORDS SUMMARY | 2025-05-23 09:55 | XMS_ITS | Clinical Summary ---
Author Organization [facility] Address [address] [place] [address] Care Team Providers Care Senior Communications Engineer Name Role Phone Orestes Atkinson MD Primary Care Provider [phone] Allergies Active Allergy Reactions Criticality Noted Date [...] Recently Relevant to Health Maintenance Care Teams Senior Communications Engineer Relationship Specialty Start Date End Date Orestes Atkinson MD [facility] [address] [place] [id number] PCP - General 02/16/23
== END 2025-05-23 10:08 | disposition home or self-care (01) ==
LOC: HO.HMCFM 09:13
PROVIDERS: PCP Nurse Practitioner Family; Visit Provider Nurse Practitioner Family
DX: E03.9 Hypothyroidism, unspecified (principal); E78.00 Pure hypercholesterolemia, unspecified; R73.03 Prediabetes; Z13.9 Encounter for screening, unspecified

== ENCOUNTER → 2025-05-23 09:12 | Outpatient (BNVA) | payer MEDICARE, SELFPAY | PROVIDERS: PCP Nurse Practitioner Family; Visit Provider Nurse Practitioner Family | DX: E03.9 Hypothyroidism, unspecified (principal); E78.00 Pure hypercholesterolemia, unspecified; R73.03 Prediabetes | CPT/HCPCS: 83036; 99212 ==